=== PATIENT | male | born 1970 | race Caucasian/White ===

== ENCOUNTER 2018-01-13 07:17 | Inpatient (IN) ==
[2018-01-13] MEDS ORDERED: Acetaminophen 325 MG Tablet PO PRN (13:34)
[2018-01-13] MEDS ORDERED: Aluminum/Magnesium/Simethacone Susp 30 ML UDC PO PRN (13:34)
[2018-01-13] MEDS ORDERED: Haloperidol Inj 5 MG/ML Ampul IV.PUSH PRN (13:38)
[2018-01-13] MEDS: LORazepam 1 MG Tablet PO PRN (21:59)
[2018-01-14] MEDS: LORazepam 1 MG Tablet PO PRN (06:31)
[2018-01-14 06:40] VITALS: RESP 18; TEMP 97.9; O2SAT 95
[2018-01-14 13:16] VITALS: BP 145/87; PULSE 77
[2018-01-14] MEDS ORDERED: Aluminum/Magnesium/Simethacone Susp 30 ML UDC PO PRN (13:29)
[2018-01-14] MEDS ORDERED: Bisacodyl 10 MG Supp RECTAL PRN (13:29)
--- NOTE | 2018-01-14 13:34 | P.HPPSY ---
Provisional Diagnosis Admission Date: January 13, 2018 10:35 [place].: Psychotic disorder brief Competence Certification of Person's Competence To Provide Express and Informed Consent I have personally examined Cody Garcia, a person being served at [facility] on, January 14, 2018 1333. Express and informed consent means consent voluntarily given in writing, by a competent person, after sufficient explanation and disclosure of the subject matter involved to enable the person to make a knowing and willful decision without any element of force, fraud, deceit, duress, or other form of constraint or coercion. This person is 18 years of age or older, is not now known to be incompetent to consent to treatment with a guardian advocate, and does not have a health care surrogate or proxy currently making medical treatment decisions. I have found this person to be one of the following: [xxx] Competent to provide express and informed consent, as defined above, for voluntary admission to this facility and is competent to provide express and informed consent for treatment. He/she has the consistent capacity to make well reasoned, willful, and knowing decisions concerning his or her medical or mental health treatment. The person fully and consistently understands the purpose of the admission for examination/placement and is fully capable of personally exercising all rights assured [place] [] Incompetent to provide express and informed consent to voluntary admission, and this is incompetent to provide express and informed consent to treatment. The person must be transferred to involuntary status and a petition for a guardian advocate filed with the Circuit Court. [] Refusing to provide express and informed consent to voluntary admission but is competent to provide express and informed consent for treatment. The person must be discharged or transferred to involuntary status. Form shall be completed within 24 hours of a person's arrival at the receiving facility and filed in the clinical record of each person: 1. Admitted on a voluntary basis 2. Permitted to provide express and informed consent to his/her own treatment 3. Allowed to transfer from involuntary to voluntary status 4. Prior to permitting a person to consent to his or her own treatment after having been previously found incompetent to consent to treatment. History of Present Illness Capacity: Has capacity History of Present Illness: Patient is a 47-year-old white male who was initially seen at [facility] the Roland act from that facility dated 01/12/2018 at 1929 hrs. by an Laura Raygoza RN and shellie cosign Via Lary Vásquez MD stating paranoid delusions acute psychosis and appears initially came to that facility claiming he was suffering from radiation poisoning that he had been researching this on YouTube he noted that he had noted to have his dental problems falling out over the past 2 months and occasional numbness in his left arm on and off for a number of years. He had been seen at that facility also 2 days prior wanted to be tested for radiation poisoning until the hospital did not do that he became somewhat angry and did leave patient seen screen in that facility urine toxicology negative blood alcohol level negative. He did state to them though that he has used marijuana intermittently and that he also takes Suboxone that some doctor gives to him he did acknowledge to me past misuse of opiates. He also uses Xanax from time to time he denies any past psychiatric history denies any psychiatric hospitalizations or psychotropic medications. He denies any legal issues related to alcohol. Though he was arrested a number of years ago when it was discovered he was raising marijuana plants in a house where there is a small child. He denies other legal issues. [place] [facility] by himself and occasionally with his 18-year- old son. He remained somewhat labile and adamant about the exposure to radiation poisoning an implication that he might be referring to being near large power lines. He denies any prior sexual of physical abuse. Denies mental health issues or addictions in his family. He is from his and his 2 adult children. At this time patient is showing delusional ideation he does denies suicidality homicidality voices or visions. At this time I feel patient does not meet Roland act criteria for involuntary psychiatric hospitalization. Patient does show fairly poor reality testing related to the delusion. The may be more of the substance abuse issue with this gentleman that he is sharing will us though his urine toxicology was negative. However at this time he does not meet Roland criteria I will lift the Roland act. Patient does wish to be discharged. He attempted to ask me for refills for his "medications". I refused this. Thus patient will be discharged today with no Rx by me we will attempt to help him get back to the [facility] - Inpatient Certification I certify that the inpatient services were ordered in accordance with Medicare regulations governing the order. This includes certification that hospital inpatient services are reasonable and necessary and in the case of services not specified as inpatient-only under 42 CFR 419.22(n), that they are appropriately provided as inpatient services in accordance to with the 2-midnight benchmark under 43 CFR 412.3(e) I certify that inpatient psychiatric hospital services are medically necessary. Evaluation and treatment and/or diagnostic testing are expected to improve the patient's condition. The patient needs on a daily basis, active treatment furnished directly by or requiring the supervision of inpatient psychiatric facility personnel. Estimated Total Length of Stay (Days): 1 Plans for Post Hospital Care: Home Review of Systems Patient making beers claims related to his perceived radiation PMFSH - History History Provided By: Patient, Medical Record, Manager Utilization Review / EMT - Medical History Medical History: Medical History (Last Updated 01/13/18 @ 15:32 by Bernie Mcmillan RN) Seizure - Tobacco History Second Hand Smoke Exposure: Yes Tobacco Use In Past 30 Days: Yes Smoking Status: Heavy tobacco smoker Tobacco Type: Cigarettes - Alcohol History How Often Do You Have a Drink Containing Alcohol: Monthly or less - Substance Use History Substance History: Active Abuse - Substance Use Type Benzodiazepines Type: xanax Status: Active Route Used: By Mouth Frequency: often Last Used: 01/12/2018 Reason for Use: Get High Opiates Type: zubsolv 4mg in the am and 4mg hs Status: Active Route Used: By Mouth Frequency: often Last Used: 01/12/2018 Reason for Use: Get High - Immunization History Tetanus Immunization: >5 Years Hx Influenza Vaccine This Season: Unable to Assess Quality Measures - Psychiatric History Psychological trauma history: Patient denies physical or sexual abuse Violence risk to others in the last 6 months: Patient denies though he is showing some aggressive somewhat labile behavior though he denies thoughts of harming anyone or any homicidality Violence risk to self in the last 6 months: Patient denies suicidality - Substance Abuse History Drug or alcohol use in the past 12 months: Patient denies urine toxicology negative - Patient Strengths Patient's strengths (minimum of 2): Patient verbal able access healthcare Medications and Allergies Active Medications: Active Medications Acetaminophen (Tylenol) 650 mg PO Q4H PRN PRN Reason: Pain 1-5 or Temp >101F Al Hydrox/Mg Hydrox/Simethicone (Mag-Al Plus Susp Liq) 30 ml PO Q6H PRN PRN Reason: DYSPEPSIA Al Hydrox/Mg Hydrox/Simethicone (Mag-Al Plus Susp Liq) 30 ml PO Q6H PRN PRN Reason: DYSPEPSIA Al Hydroxide/Mg Hydroxide (Milk Of Magnesia Liq) 30 ml PO Q12H PRN PRN Reason: Mild Constipation Diphenhydramine HCl (Benadryl) 50 mg PO HS PRN PRN Reason: INSOMNIA Flumazenil (Romazecon Inj) 0.2 mg IV.PUSH Q1M PRN PRN Reason: OVERSEDATION Haloperidol Lactate (Haldol Inj) 1 mg IV.PUSH Q15M PRN PRN Reason: for severe agitation Hydroxyzine HCl (Atarax) 50 mg PO Q6H PRN PRN Reason: ANXIETY Lorazepam (Ativan) 1 mg PO Q4H PRN PRN Reason: for CIWA 8-10 Last Admin: 01/14/18 06:31 Dose: 1 mg Lorazepam (Ativan) 2 mg PO Q2H PRN PRN Reason: for CIWA 11-14 Last Admin: 01/13/18 14:50 Dose: 2 mg Lorazepam (Ativan Inj) 2 mg IV.PUSH Q2H PRN PRN Reason: for CIWA 11-14 Lorazepam (Ativan Inj) 2 mg IV.PUSH Q1H PRN PRN Reason: for CIWA 15-20 Lorazepam (Ativan Inj) 2 mg IV.PUSH Q15M PRN PRN Reason: for CIWA > 20 Lorazepam (Ativan Inj) 1 mg IV.PUSH Q4H PRN PRN Reason: for CIWA 8-10 Nicotine (Habitrol 21 Mg Patch.24 Hr) 1 patch T-DERMAL DAILY [facility] Last Admin: 01/14/18 09:04 Dose: 1 patch Patch Removal (Remove Old Patch) 1 each T-DERMAL HS [facility] Last Admin: 01/14/18 02:23 Dose: 1 each Allergies Allergy/AdvReac Type Severity Reaction Status Date / Time iodine Allergy Mild HIVES Verified 01/13/18 13:45 penicillin G Allergy Mild HIVES Verified 01/13/18 13:45 potassium iodide Allergy Mild HIVES Verified 01/13/18 13:45 povidone-iodine Allergy Mild HIVES Verified 01/13/18 13:45 sodium iodide Allergy Mild HIVES Verified 01/13/18 13:45 sodium iodide Allergy Mild HIVES Verified 01/13/18 13:45 Home Medications Medication Instructions Recorded Confirmed Type alprazolam [Xanax] 1 mg PO TID 01/13/18 01/13/18 History buprenorphine-naloxone [Zubsolv] 0.5 tab SUBLINGUAL BID 01/13/18 01/13/18 History Exam Vital signs: Vital Signs 01/13/18 17:43 01/14/18 06:38 01/14/18 12:01 Temperature 98.0 F 97.9 F Pulse Rate 68 62 77 Respiratory Rate 20 18 Blood Pressure 165/96 H 177/108 H 145/87 H Pulse Oximetry 99 95 Intake & Output 01/13/18 01/14/18 01/14/18 18:59 06:59 18:59 Weight 102.058 kg Other: Weight On Admission 102.058 kg Narrative: Patient standing in his room nurse Bernie present throughout session. He is in no acute distress, he is in no respiratory distress no complaints of chest pain no complaints of abdominal pain patient moving all 4 extremities without difficulty Mental Status Examination Appearance: Appropriate Consciousness: Alert Orientation: x4 Motor Activity: Normal gait Speech: Unremarkable, Pressured, Rapid Language: Adequate Fund of Knowledge: Adequate Attention and Concentration: Adequate (Fair) Memory: Unremarkable Mood: Angry, Irritable Affect: Other (Decreased range and intensity) Thought Process & Associations: Linear Thought Content: Bizarre thinking Hallucination Type: None Delusion Type: Somatic (Feeling that he has radiation poisoning) Suicidal Ideation: No Suicidal Plan: No Suicidal Intention: No Homicidal Ideation: No Homicidal Plan: No Homicidal Intention: No Insight: Poor Judgment: Poor Assessment and Plan - Assessment (1) Brief psychotic disorder Code(s): F23 - Brief psychotic disorder Status: Acute - Plan Plan: Estimated LOS: [] days At this time patient does not meet Roland criteria will lift Roland act patient to be discharged to himself with no Rx by me. Dewey will assist patient is to get back near the referring hospital to get his vehicle Justification for Continued Inpatient Stay: Patient to be discharged today with no Rx by me Discharge Planning: Patient to be discharged today to himself follow-up PCP Request Healthcare Surrogate/Guardian Advocate?: No
--- NOTE | 2018-01-14 13:58 | P.DSPSY ---
Psychiatry Discharge Summary Inpatient Psychiatric care?: Yes Advance Directives: No Mental Health Advance Directive: No Health Care Proxy: No - Admission Admission Date: January 13, 2018 10:35 Brief History: Patient is a 47-year-old white male who was initially seen at [facility] the Roland act from that facility dated 01/12/2018 at 1929 hrs. by an Laura Raygoza RN and milliseconds cosign Via Lary Vásquez MD stating paranoid delusions acute psychosis and appears initially came to that facility claiming he was suffering from radiation poisoning that he had been researching this on [employer] he noted that he had noted to have his dental problems falling out over the past 2 months and occasional numbness in his left arm on and off for a number of years. He had been seen at that facility also 2 days prior wanted to be tested for radiation poisoning until the hospital did not do that he became somewhat angry and did leave patient seen screen in that facility urine toxicology negative blood alcohol level negative. He did state to them though that he has used marijuana intermittently and that he also takes Suboxone that some doctor gives to him he did acknowledge to me past misuse of opiates. He also uses Xanax from time to time he denies any past psychiatric history denies any psychiatric hospitalizations or psychotropic medications. He denies any legal issues related to alcohol. Though he was arrested a number of years ago when it was discovered he was raising marijuana plants in a house where there is a small child. He denies other legal issues. [place] [facility] by himself and occasionally with his 18-year- old son. He remained somewhat labile and adamant about the exposure to radiation poisoning an implication that he might be referring to being near large power lines. He denies any prior sexual of physical abuse. Denies mental health issues or addictions in his family. He is from his and his 2 adult children. At this time patient is showing delusional ideation he does denies suicidality homicidality voices or visions. At this time I feel patient does not meet Roland act criteria for involuntary psychiatric hospitalization. Patient does show fairly poor reality testing related to the delusion. The may be more of the substance abuse issue with this gentleman that he is sharing will us though his urine toxicology was negative. However at this time he does not meet Roland criteria I will lift the Roland act. Patient does wish to be discharged. He attempted to ask me for refills for his "medications". I refused this. Thus patient will be discharged today with no Rx by me we will attempt to help him get back to the [facility] area Tobacco Use In Past 30 Days: Yes How Often Do You Have a Drink Containing Alcohol: Monthly or less Hospital Course: Please see above dictation under brief history patient denies suicidality homicidality voice or visions is able contract to do no harm. Patient to be discharged from self with no Rx by me to follow-up with his PCP year follow-up mental health services in his home location. - Discharge Discharge Date: 01/14/18 - Discharge Diagnosis (1) Brief psychotic disorder Diagnosis: Principal Code(s): F23 - Brief psychotic disorder Status: Acute (2) Delusional disorder, somatic type Diagnosis: Principal Code(s): F22 - Delusional disorders Status: Acute Discharge Disposition: Home - Discharge Instructions Discharge Diet: Regular Diet Activities You Can Perform: Regular- No Restrictions - Discharge Time > 30 minutes Mental Status Examination Appearance: Appropriate Consciousness: Alert Orientation: x4 Motor Activity: Normal gait Speech: Unremarkable, Pressured, Rapid Language: Adequate Fund of Knowledge: Adequate Attention and Concentration: Adequate (Fair) Memory: Unremarkable Mood: Angry, Irritable Affect: Other (Decreased range and intensity) Thought Process & Associations: Linear Thought Content: Bizarre thinking Hallucination Type: None Delusion Type: Somatic (Feeling that he has radiation poisoning) Suicidal Ideation: No Suicidal Plan: No Suicidal Intention: No Homicidal Ideation: No Homicidal Plan: No Homicidal Intention: No Insight: Poor Judgment: Poor Discharge/Advance Care Plan - Results Vital Signs: Last Vital Signs Temp 97.9 F 01/14/18 06:38 Pulse 77 01/14/18 12:01 Resp 18 01/14/18 06:38 BP 145/87 H 01/14/18 12:01 Pulse Ox 95 01/14/18 06:38 Lab Results: Urine toxicology negative from [facility] Summary of Procedures: None done Pending Results: None - Medications Number of antipsychotic medications at discharge: 0 - Discharge Care Plan Goals to Promote Your Health: * To prevent worsening of your condition and complications * To maintain your health at the optimal level Directions to Meet Your Goals: Take your medications as prescribed Follow your dietary instruction Follow activity as directed Keep your appointments as scheduled Take your immunizations and boosters as scheduled If your symptoms worsen call your PCP, if no PCP go to Urgent Care Center or Emergency Room For 30/11 questions related to your inpatient stay or results of tests pending at discharge, please contact Dr. Jhonny Loya MD at Smoking is Dangerous to Your Health. Avoid second hand smoking
[2018-01-14] MEDS ORDERED: Senna/Docusate Sodium 8.6/50 MG Tablet PO SCH (21:00)
== END 2018-01-14 15:30 | disposition home or self-care (01) ==
LOC: H270 10:35
PROVIDERS: ADMIT Psychiatry & Neurology Psychiatry; ATTEND Psychiatry & Neurology Psychiatry